=== PATIENT | female | born 1950 | race Caucasian/White ===

== ENCOUNTER 2017-06-08 14:41 | Emergency (ER) | payer OTHER, MEDICARE, SELFPAY | END 2017-06-08 18:05 | disposition home or self-care (01) | PROVIDERS: Emergency Provider Internal Medicine; Family Provider Family Medicine; PCP Family Medicine; Visit Provider Internal Medicine | DX: S16.1XXA Strain of muscle, fascia and tendon at neck level, initial encounter (principal); S56.912A Strain of unspecified muscles, fascia and tendons at forearm level, left arm, initial encounter; S46.811A Strain of other muscles, fascia and tendons at shoulder and upper arm level, right arm, initial encounter; S13.4XXA Sprain of ligaments of cervical spine, initial encounter; V89.2XXA Person injured in unspecified motor-vehicle accident, traffic, initial encounter | CPT/HCPCS: 72125; 73030; 99284 ==

== ENCOUNTER → 2017-07-05 10:50 | Outpatient (CLI) | payer MEDICARE, OTHER, SELFPAY ==
--- NOTE | 2017-07-05 | DI.MRI.S_ITS ---
PROCEDURE: MR LUMBAR SPINE WO CON INDICATIONS: LOW BACK PAIN TECHNIQUE: Noncontrast sagittal T1 spin echo and T2 fast echo, sagittal STIR, axial T1 and T2 fast spin echo through the lumbar spine. In cases with scoliosis, additional coronal T2 fast spin echo may be performed. COMPARISON: None. FINDINGS: Image quality: Degraded by patient motion artifact. Alignment and Curvature: There is grade 1 L5-S1 anterolisthesis secondary to bilateral pars interarticularis defects. There is trace L2-L3, L3-L4 and L4-L5 retrolisthesis. There is straightening of normal lumbar spine curvature. Bone Marrow: Reactive endplate change is noted adjacent to the L2-L3, L3-L4, L4-L5 and L5-S1 discs. No acute vertebral body compression fractures. Spinal Cord: Conus medullaris terminates at the L1 level. Visualized cord demonstrates normal signal and size. Paraspinous Soft Tissues: No paravertebral masses. L1-L2: Normal appearance. L2-L3: Loss of disc signal. Minimal, diffuse disc bulge. No central stenosis. No neural foraminal narrowing. No neural impingement. L3-L4: Loss of disc signal. Minimal, diffuse disc bulge. No central stenosis. No neural foraminal narrowing. No neural impingement. L4-L5: Loss of disc signal. Mild, diffuse disc bulge. Mild right and moderate left facet hypertrophy. Mild narrowing of the central canal secondary to disc disease and facet hypertrophy. Moderate bilateral neural foraminal narrowing secondary to disc and facet disease. No neural impingement. L5-S1: Loss of disc signal. Mild, diffuse disc bulge. Mild right and moderate left facet hypertrophy. No central stenosis. Severe bilateral neural foraminal narrowing secondary to disc disease and isthmic spondylolisthesis with marked flattening deformity of the exiting L5 nerve roots bilaterally. IMPRESSION: 1. Grade 1 L5-S1 isthmic spondylolisthesis. 2. Multilevel degenerative disc disease. 3. Multilevel facet arthropathy. 4. Mild L4-L5 central canal narrowing. 5. Severe bilateral L5-S1 neural foraminal narrowing. Moderate bilateral L4-L5 neural foraminal narrowing. 5. Marked flattened deformity of the exiting L5 nerve roots bilaterally secondary to neural foraminal narrowing. Please correlate with clinical data. Dictated by: Radha Olivarez MD, PhD on 07/05/2017 at 14:47 Approved by: Radha Olivarez MD, PhD on 07/05/2017 at 14:55
== END ==
PROVIDERS: Family Provider Family Medicine; PCP Family Medicine; Visit Provider Family Medicine
DX: M43.17 Spondylolisthesis, lumbosacral region (principal); M51.36 Other intervertebral disc degeneration, lumbar region; M47.816 Spondylosis without myelopathy or radiculopathy, lumbar region; M48.061 Spinal stenosis, lumbar region without neurogenic claudication; M99.73 Connective tissue and disc stenosis of intervertebral foramina of lumbar region
CPT/HCPCS: 72148

== ENCOUNTER → 2017-07-05 11:02 | Outpatient (CLI) | payer MEDICARE, OTHER, SELFPAY ==
--- NOTE | 2017-07-05 | DI.US.S_ITS ---
PROCEDURE: US THYROID INDICATIONS: NONTOXIC NODULE TECHNIQUE: Real-time scanning was performed of the thyroid gland, with image documentation. COMPARISON: None. FINDINGS: Right: Thyroid lobe measures 4.2 x 1.7 x 1.3 cm, and is homogeneous in echotexture. Left: Thyroid lobe measures 4.3 x 1.7 x 1.7 cm, and is homogenous in echotexture. Isthmus: 4.0 mm thick. Nodule number: 1 Location: Left mid Size: 1.5 x 1.2 x 1.3 cm. Composition: Solid Echogenicity: Isoechoic Shape: wider than tall. Margins: Ill-defined Echogenic foci: None Total points: 3 ACR TI-RADS category: Mildly suspicious. IMPRESSION: Mildly suspicious midpole left thyroid nodule. Given the small size, no fine-needle aspiration is recommended. Recommend followup ultrasound as below. ACR TI-RADS definitions and recommendations: TI-RADS 1 (benign): 0 points. FNA not needed. TI-RADS 2 (not suspicious): 2 points. FNA not needed. TI-RADS 3 (mildly suspicious): 3 points. * FNA if 2.5 cm or larger, follow up if 1.5 cm or larger (at 1, 3, and 5 years). TI-RADS 4 (moderately suspicious): 4-6 points. * FNA if 1.5 cm or larger, follow up if 1 cm or larger (at 1, 2, 3, and 5 years). TI-RADS 5 (highly suspicious): 7 points or more. * FNA if 1 cm or larger, follow up if 0.5 cm or larger (every year for 5 years). Dictated by: Fortunato ROBLES Interpreted: Paige Huff MD on 07/05/2017 at 13:00 Approved by: Paige Huff M.D. on 07/05/2017 at 15:10
== END ==
PROVIDERS: Family Provider Family Medicine; PCP Family Medicine; Visit Provider Family Medicine
DX: E04.1 Nontoxic single thyroid nodule (principal)
CPT/HCPCS: 72148; 76536

== ENCOUNTER → 2017-07-12 16:30 | Outpatient (CLI) | payer OTHER, MEDICARE, SELFPAY ==
--- NOTE | 2017-07-12 16:35 | DI.RAD.S_ITS ---
PROCEDURE: XR ELBOW LT MIN 3V INDICATIONS: left elbow pain after trauma TECHNIQUE: 3 views of the elbow were acquired. COMPARISON: None. FINDINGS: Bones: There is mild cortical irregularity in the area of the lateral epicondyle. The relationship between the proximal radius and ulna is abnormal on the AP view. No suspicious bony lesions. Soft tissues: No elbow joint effusion. No suspicious soft tissue calcifications. IMPRESSION: 1. There is cortical irregularity in the lateral epicondyle. Cannot rule out a subtle fracture. If clinical suspicion is high, CT or MRI is suggested. 2. The relationship between the proximal radius and ulna is abnormal on the AP projection. This finding could be due to rotation. Repeat examination when clinically feasible would be helpful. Dictated by: Reg Lagos M.D. on 07/12/2017 at 17:30 Approved by: Reg Lagos M.D. on 07/12/2017 at 17:38
== END ==
PROVIDERS: Family Provider Family Medicine; PCP Family Medicine; Visit Provider Family Medicine
DX: M25.522 Pain in left elbow (principal)
CPT/HCPCS: 73080

== ENCOUNTER → 2017-07-23 14:14 | Outpatient (CLI) | payer OTHER, SELFPAY ==
--- NOTE | 2017-07-23 14:17 | DI.CT.S_ITS ---
PROCEDURE: CT UE LT WO CON INDICATIONS: 67 year-old female with possible distal humeral fracture on recent elbow radiographs. TECHNIQUE: Noncontrast 1-1.5 mm axial sections were acquired through the elbow joint, with coronal and sagittal reformats. COMPARISON: [facility], CR, XR ELBOW LT MIN 3V, 07/12/2017, 16:15. FINDINGS: Image quality: Excellent. Bones: No acute fractures or dislocations. No suspicious lytic or blastic bony lesions. Soft tissues: No elbow joint effusion. The surrounding musculature demonstrates normal overall bulk. No soft tissue mass lesions identified. IMPRESSION: No acute bony injuries of the left elbow. Dictated by: Ulices Olivas M.D. on 07/23/2017 at 14:55 Approved by: Ulices Olivas M.D. on 07/23/2017 at 15:01
== END ==
PROVIDERS: Family Provider Family Medicine; PCP Family Medicine; Visit Provider Family Medicine
DX: M25.522 Pain in left elbow (principal); R93.7 Abnormal findings on diagnostic imaging of other parts of musculoskeletal system
CPT/HCPCS: 73200

== ENCOUNTER → 2017-11-29 16:09 | Outpatient (CLI) | payer OTHER, MEDICARE, SELFPAY ==
--- NOTE | 2017-11-29 16:58 | DI.RAD.S_ITS ---
PROCEDURE: XR LUMBAR SPINE MIN 4V INDICATIONS: spondylolisthesis l5-s1 level TECHNIQUE: 5 views of the lumbar spine were acquired. COMPARISON: [facility], , L-SPINE 2-3 VIEWS, 11/09/2008, 11:16. FINDINGS: Bones: No fracture or focal osseous destruction. Prominent anterior endplate spurring. Grade 1 retrolisthesis of L2 on L3, L3 on L4 and L4 on L5. Grade 1 anterolisthesis of L5 on S1. This measures 11 mm, previously on 11/17/08 this measured 6 mm. There is diffuse facet arthropathy, most pronounced at L5-S1. Moderate narrowing of the L5-S1 disc space. Mild narrowing of the remaining lumbar disc spaces. Soft tissues: Overlying bowel gas pattern is normal. No suspicious soft tissue calcifications. Oblique images: No pars defects visualized although limited evaluation given advanced stage of arthritic change. IMPRESSION: Interval progression and L5-S1 disc degeneration and facet arthropathy, and anterolisthesis of L5 on S1. Dictated by: Varun Sanchez M.D. on 11/29/2017 at 17:08 Approved by: Varun Sanchez M.D. on 11/29/2017 at 17:11
== END ==
PROVIDERS: Family Provider Family Medicine; Visit Provider Physical Medicine & Rehabilitation
DX: M43.17 Spondylolisthesis, lumbosacral region (principal); M51.37 Other intervertebral disc degeneration, lumbosacral region; M47.817 Spondylosis without myelopathy or radiculopathy, lumbosacral region
CPT/HCPCS: 72110

== ENCOUNTER 2018-01-02 07:13 | Outpatient (CLI) | payer OTHER, MEDICARE, SELFPAY ==
--- NOTE | 2018-01-02 07:18 | DI.RAD.S_ITS ---
PROCEDURE: PAIN L INTERLAMINAR/CAUDAL INJ INDICATIONS: INTERVERTEBRAL DISC DISPLACEMENT FINDINGS: Fluoroscopic spot filming was performed to verify placement of spinal needles at the L5-S1 level(s), as labeled on the films. Appropriate location(s) of the needle tip(s) was confirmed by injection of iodinated contrast. Dictated by: Varun Sanchez M.D. on 01/02/2018 at 14:55 Approved by: Varun Sanchez M.D. on 01/02/2018 at 14:56
[2018-01-02 08:02] VITALS: BP 112/73; PULSE 65; RESP 15; TEMP 36.1; O2SAT 98
[2018-01-02 08:35] VITALS: BP 123/78; PULSE 65; RESP 18; O2SAT 100
[2018-01-02] MEDS: MIDAZOLAM 5 MG/5 ML VIAL IV (08:39)
[2018-01-02 08:40] VITALS: BP 114/69; PULSE 65; RESP 16; O2SAT 97
[2018-01-02] MEDS: IOPAMIDOL 15 ML VIAL 3 ML INJ (08:44)
[2018-01-02] MEDS: BUPIVACAINE 0.25% (PF) VIAL 2 ML INJ (08:44)
[2018-01-02 08:45] VITALS: BP 116/70; PULSE 64; RESP 18; O2SAT 99
[2018-01-02] MEDS: methylPREDNISolone acetate 80 MG/ML VIAL INJ (08:45)
[2018-01-02] MEDS: DEXAMETHASONE 10 MG/ML VIAL 20 MG INJ (08:45)
--- NOTE | 2018-01-02 08:51 | P.PCN_ITS ---
Procedures Date/Time Date of procedure: 01/02/18 Time of procedure: 08:50 General Procedure description: PROVIDER: Rajan Ulloa DO Operative Note PREOP DIAGNOSIS 1. HNP WITH RADICULAR FEATURES, 2. MULTILEVEL CENTRAL STENOSIS, POST OP DIAGNOSIS 1. HNP WITH RADICULAR FEATURES, 2. MULTILEVEL CENTRAL STENOSIS, PROCEDURES 1. FLUORSCOPICALLY GUIDED CONTRAST CONTROLLED INTERLAMINAR EPIDURAL STEROID INJECTION - L5/S1 PHYSICIAN: Rajan Ulloa DO INDICATIONS Kaitlin is referred by Dr. Doan for treatment of Bilateral Foraminal Stenosis L>R LE symptoms. FINDINGS Multilevel Central Spinal Stenosis with Nerve Root Compression DESCRIPTION OF PROCEDURE Fluoroscopically guided, contrast-controlled L5/S1 translaminar epidural steroid injection. Following denial of allergy and review of potential side effects and complications, including, but not necessarily limited to, infection, allergic reaction, local tissue breakdown, temporary as well as permanent nerve injury, paralysis, stroke and possible , the patient indicated that the patient understood and agreed to proceed. An informed consent document was signed by the patient, witnessed by a nurse, and placed in the patient's chart. Additionally, other treatment options including modalities, medications, and physical therapy were reviewed with the patient. After review of previous anaesthesic history and IV conscious sedation the patient was deemed safe to proceed with todays procedure with IV conscious sedation as ASA class II designation. Safety time-out was performed to confirm patient ID, procedure to be performed and site of procedure. IV sedation was accomplished with a combination of 2mg of Versed administered by the RN after DO order, titrated to patient comfort during the course of the procedure while the patient remained responsive to all verbal commands. In the prone position, following sterile prep and drape of the lumbar region, the L5/S1 translaminar space was identified fluoroscopically. The skin was anesthetized via a 25-gauge, 1.5-inch needle with 1% lidocaine solution. At this point, a 22-gauge short bevel spinal needle was atraumatically introduced and advanced under fluoroscopic guidance into the region of the L5/S1 translaminar space. Depth was confirmed on lateral view. Radiological data, including multiple fluoroscopic views of the lumbar spine, reveal a spinal needle at the L5/S1 translaminar space. Lateral views then show placement of the needle in the epidural space. Subsequent views show contrast material flowing superiorly and inferiorly in the epidural space. No vascular or intrathecal uptake is observed. At this point, using loss of resistance technique with saline and air, the epidural space was entered. This was confirmed following negative aspiration with injection of approximately 1.5 cc of Isovue 200, showing excellent epidural flow without vascular or intrathecal uptake. At this point, 1 cc of 1 % lidocaine solution combined with 3 cc or 20 mg of dexamethasone and 80mg Depo medrol was injected without incident. The patent tolerated the procedure without signs of symptoms of complications prior to transfer to the recovery area for further monitoring. The patient was then transferred to the recovery area where they were observed for an appropriate period of time after the injection. The patient reported a VAS score of 6 prior to the procedure and a post-procedure VAS of 0. Total Fluoroscopy Time: 11.8 seconds Total Conscious Sedation Time: 24min POST OP INSTRUCTIONS The patient was provided a Pain Log to continue to record their response to the target-specific procedure prior to follow-up visit with their referring physician. Additionally, specific post-injection care instructions and a contact number to our office were provided if concerns arise regarding possible complications associated with the procedure are suspected. Rajan Ulloa DO Complications: none
[2018-01-02 08:55] VITALS: BP 108/65; PULSE 68; RESP 16; O2SAT 98
[2018-01-02 09:03] VITALS: BP 116/63; PULSE 62; RESP 16; O2SAT 98
== END 2018-01-02 09:37 | disposition home or self-care (01) ==
LOC: RAD 07:17
PROVIDERS: Family Provider Family Medicine; PCP Family Medicine; Visit Provider Physical Medicine & Rehabilitation
DX: M51.17 Intervertebral disc disorders with radiculopathy, lumbosacral region (principal); M48.07 Spinal stenosis, lumbosacral region; M43.17 Spondylolisthesis, lumbosacral region; M54.5 Low back pain
CPT/HCPCS: 62323; 99152; J1040; J1100; J2250

== ENCOUNTER → 2018-02-26 15:56 | Outpatient (CLI) | payer OTHER, SELFPAY ==
--- NOTE | 2018-02-26 16:02 | DI.RAD.S_ITS ---
PROCEDURE: XR KNEE LT 3V INDICATIONS: Left knee pain and muscle cramping TECHNIQUE: 3 views of the knee were acquired. COMPARISON: None. FINDINGS: Bones: No fractures or dislocations. There is mild joint space narrowing in the medial compartment and the lateral patellofemoral compartment. Mild tricompartmental osteophytosis noted. No suspicious bony lesions. Soft tissues: No joint effusion. No suspicious soft tissue calcifications. IMPRESSION: 1. Mild osteoarthritic changes as described. Dictated by: Meng Benitez M.D. on 02/26/2018 at 17:20 Approved by: Meng Benitez M.D. on 02/26/2018 at 17:20
== END ==
PROVIDERS: PCP Family Medicine; Visit Provider Physical Medicine & Rehabilitation
DX: M25.562 Pain in left knee (principal); M17.12 Unilateral primary osteoarthritis, left knee; R25.2 Cramp and spasm
CPT/HCPCS: 73562

== ENCOUNTER 2018-08-15 13:47 | Outpatient (CLI) | payer OTHER, MEDICARE, SELFPAY ==
[2018-08-15] VITALS (8 sets, daily range): BP systolic 97–137; BP diastolic 54–99; PULSE 54–63; RESP 16–18; TEMP 36.5; O2SAT 96–100
--- NOTE | 2018-08-15 13:49 | DI.RAD.S_ITS ---
PROCEDURE: PAIN L/SI FACET INJ/BLK 1STL INDICATIONS: SPONDYLOSIS FINDINGS: Fluoroscopic spot filming was performed to verify placement of spinal needles at the L4-L5 and L5-S1 level(s), as labeled on the films. Appropriate location(s) of the needle tip(s) was confirmed by injection of iodinated contrast. IMPRESSION: Fluoroscopy for pain management. Dictated by: Reg Lagos M.D. on 08/15/2018 at 15:35 Approved by: Reg Lagos M.D. on 08/15/2018 at 15:35
[2018-08-15] MEDS: fentaNYL 100 MCG/2 ML INJ 50 MCG IV (14:45)
[2018-08-15] MEDS: MIDAZOLAM 5 MG/5 ML VIAL IV (14:45)
[2018-08-15] MEDS: IOPAMIDOL 15 ML VIAL 3 ML INJ (14:49)
[2018-08-15] MEDS: BUPIVACAINE 0.5% (PF) VIAL 2 ML INJ (14:49)
[2018-08-15] MEDS: LIDOCAINE 1% 20 ML INJ 10 ML INJ (14:50)
[2018-08-15] MEDS: BETAMETHASONE 30 MG/5 ML MDV 12 MG INJ (14:50)
--- NOTE | 2018-08-15 14:54 | PC.NURSE ---
Pt tolerated procedure well. Able to get off table with standby assist. Transferred pt via wheelchair awake and alert to pre procedure room for continued monitoring with Anisha CEDILLO.
--- NOTE | 2018-08-15 15:04 | P.PCN_ITS ---
Procedures Date/Time Date of procedure: 08/15/18 Time of procedure: 15:02 General Procedure description: PREOP DIAGNOSIS 1. FACET ARTHROPATHY, 2. AXIAL LBP, 3. MULTILEVEL DDD, POST OP DIAGNOSIS 1. FACET ARTHROPATHY, 2. AXIAL LBP, 3. MULTILEVEL DDD, PROCEDURES 1. FLUORSCOPICALLY GUIDED CONTRAST CONTROLLED FACET JOINT INJECTIONS RIGHT L4/5, L5/S1 SURGEON: Rajan Ulloa, DO INDICATIONS Kaitlin is referred by for treatment of Axial LBP FINDINGS Multilevel Facet Arthropathy with Clinically significant axial LBP DESCRIPTION OF PROCEDURE Fluoroscopically guided, contrast-controlled right L4/5, L5/S1 facet joint injections. Following review of allergy and review of potential side effects and complications, including, but not necessarily limited to, infection, allergic reaction, local tissue breakdown, stroke, temporary or permanent nerve injury, paralysis, and possible , the patient indicated that the patient understood and agreed to proceed. An informed consent document was signed by the patient, witnessed by a nurse, and placed in the patient's chart. Additionally, other treatment options including medications, modalities, and physical therapy were reviewed with the patient. After review of previous anaesthesic history and IV conscious sedation the patient was deemed safe to proceed with todays procedure with IV conscious sedation as ASA class II designation. Safety time-out was performed to confirm patient ID, procedure to be performed and site of procedure. IV sedation was accomplished with a combination of 2mg of Versed and 50mcg of Fentanyl was administered by the RN after DO order, titrated to patient comfort during the course of the procedure while the patient remained responsive to all verbal commands. In the prone position, following sterile prep and drape of the lumbar region, the posterior aspect of the right L4/5, L5/S1 facet joints were identified fluoroscopically. The skin was anesthetized via a 25-gauge 1.5-inch needle with 1% lidocaine solution into the corresponding facet joints. At this point, a 22- gauge 3.5-inch spinal needle was atraumatically introduced and advanced under fluoroscopic guidance into the corresponding facet joints. Following negative aspiration, injections of approximately 0.2-cc of Isovue 200 confirmed interarticular placement without vascular uptake. Radiological data, including multiple fluoroscopic views of the lumbosacral spine, reveal a spinal needle at the right L4/5, L5/S1 facet joints. Subsequent views show flow of contrast material both superiorly and inferiorly within the joint space without vascular or intrathecal uptake. At this point, a total of 0.5 cc including a mixture of 0.25cc Marcaine and 0.25cc betamethasone was injected without complication into each of the corresponding facet joints. The procedure tolerated the procedure well without signs or symptoms of complications prior to transfer to the recovery area continued monitoring without incident. The patient was then transferred to the recovery area where they were observed for an appropriate period of time after the injection. The patient reported a VAS score of 7 prior to the procedure and a post-procedure VAS of 0. Total Fluoroscopy Time: 12.7 seconds Total Conscious Sedation Time: 24min POST OP INSTRUCTIONS The patient was provided a Pain Log to continue to record their response to the target-specific procedure prior to follow-up visit with their referring physician. Additionally, specific post-injection care instructions and a contact number to our office were provided if concerns arise regarding possible c omplications associated with the procedure are suspected. Rajan Ulloa DO Complications: none
== END 2018-08-15 15:31 | disposition home or self-care (01) ==
LOC: RAD 13:49
PROVIDERS: PCP Family Medicine; Visit Provider Physical Medicine & Rehabilitation
DX: M47.816 Spondylosis without myelopathy or radiculopathy, lumbar region (principal); M47.817 Spondylosis without myelopathy or radiculopathy, lumbosacral region; M54.5 Low back pain; M51.36 Other intervertebral disc degeneration, lumbar region; M51.37 Other intervertebral disc degeneration, lumbosacral region
CPT/HCPCS: 64493; 64494; 99152; J0702; J2250; J3010

== ENCOUNTER → 2019-12-04 11:02 | Outpatient (CLI) | payer MEDICARE, OTHER, SELFPAY ==
--- NOTE | 2019-12-04 11:04 | DI.MRI.S_ITS ---
PROCEDURE: MR LUMBAR SPINE WO CON INDICATIONS: Lumbar facet arthropathy L5-S1 spondylolisthesis TECHNIQUE: Noncontrast sagittal T1 spin echo and T2 fast echo, sagittal STIR, axial T1 and T2 fast spin echo through the lumbar spine. In cases with scoliosis, additional coronal T2 fast spin echo may be performed. COMPARISON: [facility], CR, XR LUMBAR SPINE MIN 4V, 11/29/2017, 16:18. [facility], RG, XR L SP FLEXION AND EXTENSION, 02/05/2019, 12:06. [facility], MR, MR LUMBAR SPINE WO CON, 07/05/2017, 11:43. FINDINGS: Image quality: Excellent. Alignment and Curvature: 5 lumbar type vertebral bodies are present by plain film. Mild grade 1 retrolisthesis of L2 on L3, L3 on L4, and L4 on L5. Mild grade 1 anterolisthesis of L5 on S1. Bone Marrow: Marrow is of normal overall signal. No acute vertebral body compression fractures. Bilateral L5-S1 pars interarticularis defects. Moderate reactive signal within the endplates adjacent to the L4-L5 intervertebral disc. Mild reactive signal within the endplates adjacent to the L1-L2, L2-L3, L3-L4, and L5-S1 intervertebral discs. Spinal Cord: Conus medullaris terminates at the T12-L1 disc space level. Visualized cord demonstrates normal signal and size. Paraspinous Soft Tissues: No paravertebral masses. L1-L2: Mild facet and ligamentum flavum hypertrophy. No significant canal, or foraminal stenosis. No change. L2-L3: Mild disc desiccation and diffuse disc bulge. Mild facet and ligamentum flavum hypertrophy. Mild canal stenosis. Mild bilateral foraminal stenosis. No change. L3-L4: Mild disc height loss and desiccation. Mild diffuse disc bulge. Mild facet and ligamentum flavum hypertrophy. Mild canal stenosis. Mild bilateral foraminal stenosis. No change. L4-L5: Moderate disc height loss and desiccation. Mild diffuse disc bulge. Mild facet and ligamentum flavum hypertrophy. Mild canal stenosis. Mild bilateral foraminal stenosis. No change. L5-S1: Moderate disc height loss and desiccation. Mild diffuse disc bulge. Mild bilateral facet hypertrophy. No canal stenosis. Severe bilateral foraminal stenosis with left greater than right L5 nerve root compression. No change. IMPRESSION: 1. Grade 1 isthmic spondylolisthesis at L5-S1. 2. Multilevel degenerative disc and facet disease, as well as ligamentum flavum hypertrophy and epidural lipomatosis. 3. Mild multilevel canal stenosis. 4. Multilevel foraminal stenoses, worst at L5-S1, where there is associated intraforaminal nerve root compression as described above. Recommend correlation with clinical symptoms to ascertain relevance of these findings. Dictated by: Lou Osullivan M.D. on 12/04/2019 at 12:24 Approved by: Lou Osullivan M.D. on 12/04/2019 at 12:29
== END ==
PROVIDERS: PCP Family Medicine; Referring Provider Family Medicine; Visit Provider Physical Medicine & Rehabilitation
DX: M47.817 Spondylosis without myelopathy or radiculopathy, lumbosacral region (principal); M51.36 Other intervertebral disc degeneration, lumbar region; M48.061 Spinal stenosis, lumbar region without neurogenic claudication; M53.3 Sacrococcygeal disorders, not elsewhere classified
CPT/HCPCS: 72148

== ENCOUNTER → 2019-12-22 15:23 | Outpatient (CLI) | payer MEDICARE, OTHER, SELFPAY ==
[2019-12-24 08:24] LABS: COVID19 Sendout Not Detected (Not Detect)
== END ==
PROVIDERS: PCP Family Medicine; Visit Provider Physician Assistant
DX: Z11.59 Encounter for screening for other viral diseases (principal)
CPT/HCPCS: 87635

== ENCOUNTER 2019-12-25 14:58 | Outpatient (CLI) | payer MEDICARE, OTHER, SELFPAY ==
[2019-12-25] VITALS (10 sets, daily range): BP systolic 97–127; BP diastolic 51–69; PULSE 60–71; RESP 14–20; TEMP 36.1; O2SAT 95–100
--- NOTE | 2019-12-25 14:59 | DI.RAD.S_ITS ---
PROCEDURE: PAIN L/S FACET INJ/BLK 1ST KENYA COMPARISON: [facility], MR, MR LUMBAR SPINE WO CON, 12/04/2019, 11:19. INDICATIONS: SPONDYLOSIS FINDINGS: Fluoroscopic spot filming was performed to verify placement of a spinal needle at the L4, L5, and S1 levels on both sides, as labeled on the films. Appropriate location of the needle tips was confirmed by injection of iodinated contrast. IMPRESSION: Intraprocedural examination within normal limits. Dictated by: Yrn Hobbs M.D. on 12/25/2019 at 16:34 Approved by: Yrn Hobbs M.D. on 12/25/2019 at 16:34
[2019-12-25] MEDS: fentaNYL 100 MCG/2 ML INJ 50 MCG IV (15:42)
[2019-12-25] MEDS: IOPAMIDOL 15 ML VIAL 3 ML INJ (15:49)
[2019-12-25] MEDS: LIDOCAINE 1% 20 ML 10 ML INJ (15:49)
[2019-12-25] MEDS: BUPIVACAINE 0.5% (PF) VIAL 5 ML INJ (15:49)
[2019-12-25] MEDS: MIDAZOLAM 5 MG/5 ML VIAL IV (15:50)
--- NOTE | 2019-12-25 16:06 | P.PCN_ITS ---
Date/Time/Diagnoses Date of procedure: 12/25/19 Time of procedure: 16:07 Pre-procedure diagnosis: 1. FACET ARTHROPATHY Post-procedure diagnosis: same Procedure Notes Procedure: 1. BILATERAL- L4, L5 and S1 DIAGNOSTIC MB BLOCKS with LA Anesthetic Indications: Kaitlin is referred by Dr. Doan for treatment of Bilateral Axial LBP. Physician: Rajan Ulloa Total Fluoroscopy time (seconds): 11 Total sedation minutes: 16 Complications: none Procedure in detail & Post-procedure care: DESCRIPTION OF PROCEDURE Fluoroscopically guided, contrast-controlled bilateral L4, L5 and S1 medial branch blocks with 0.5cc of 0.5% Marcaine. Following review of allergy and review of potential side effects and complications, including, but not necessarily limited to, infection, allergic reaction, local tissue breakdown, nerve injury, paralysis, stroke and possible , the patient indicated that the patient understood and agreed to proceed. An informed consent document was signed by the patient, witnessed by a nurse, and placed in the patient's chart. After review of previous anaesthesic history and IV conscious sedation the patient was deemed safe to proceed with today's procedure with IV conscious sedation as ASA class II designation. Safety time-out was performed to confirm patient ID, procedure to be performed and site of procedure. IV sedation was accomplished with a combination of 3mg of Versed and 50mcg of Fentanyl was administered by the RN after DO order, titrated to patient comfort during the course of the procedure while the patient remained responsive to all verbal commands In the prone position, following sterile prep and drape of the lumbar region, the right L4, L5 and S1 anatomical location of the medial branch of the dorsal ramus was identified fluoroscopically. Subsequently an anesthetic skin wheal using 1% lidocaine solution was initiated at each of the anatomical spots. Subsequently then a 22-gauge 3.5-inch spinal needle was atraumatically introduced and advanced under fluoroscopic guidance at each of the corresponding sites at the right L4, L5 and S1 MB. After negative aspiration, 0.2cc of Isovue 200 was injected, confirming placement without vascular or intrathecal uptake. Subsequently then 0.5cc of 0.5% Marcaine solution was injected at each of the corresponding sites at the right L4, L5 and S1 medial branch locations. The identical procedure was replicated on the left. The patient tolerated the procedure well without signs or symptoms of complications prior to transfer to the recovery area continued monitoring without incident. Post-procedure, the patient was monitored initiating provocative activities to measure the amount of relief from block of the facetogenic pain. The patient reported a VAS of 7 prior to the procedure and a post-procedure VAS of 1. It has been a pleasure to assist in the diagnostic and therapeutic care of your patient. POST OP INSTRUCTIONS The patient was provided with a Pain Log to complete over the next several hours and subsequent days prior to the patient's follow up with the ordering physician. If the patient has asw specialist relief to the solution applied, then they may be a candidate for medial branch rhizotomy. The patient is aware, was provided, once again, with a Pain Log and will follow up with the referring physician for review and clinical correlation
== END 2019-12-25 16:50 | disposition home or self-care (01) ==
PROVIDERS: PCP Family Medicine; Referring Provider Physical Medicine & Rehabilitation; Visit Provider Physical Medicine & Rehabilitation
DX: M47.816 Spondylosis without myelopathy or radiculopathy, lumbar region (principal); M47.817 Spondylosis without myelopathy or radiculopathy, lumbosacral region; M54.5 Low back pain
CPT/HCPCS: 64493; 64494; 99152; J2250; J3010

== ENCOUNTER → 2020-01-26 08:59 | Outpatient (CLI) | payer MEDICARE, OTHER, SELFPAY ==
--- NOTE | 2020-01-26 09:02 | DI.RAD.S_ITS ---
PROCEDURE: XR LUMBAR SPINE MIN 4V INDICATIONS: UPDATE IMAGING TECHNIQUE: 5 views of the lumbar spine were acquired. COMPARISON: [facility], , XR LUMBAR SPINE MIN 4V, 11/29/2017, 16:18. FINDINGS: Bones: No fracture. Multilevel degenerative endplate sclerosis and spurring. Diffuse facet arthropathy. Grade 2 anterolisthesis of L5 on S1. Grade 1 retrolisthesis of L4 on L5. Moderate narrowing of the L4-L5 and L5-S1 disc spaces. There is diffuse lower thoracic disc degeneration and disc space narrowing. Mild bilateral hip joint degeneration. Soft tissues: Overlying bowel gas pattern is normal. No suspicious soft tissue calcifications. Oblique images: No pars defects however limited evaluation given advanced discogenic changes.. IMPRESSION: Grade 2 anterolisthesis of L5 on S1. Grade 1 retrolisthesis of L4 on L5. No interval change Diffuse lower lumbar spondylosis and facet arthropathy. No interval change since 11/29/17. Dictated by: Varun Sanchez M.D. on 01/26/2020 at 11:43 Approved by: Varun Sanchez M.D. on 01/26/2020 at 11:45
== END ==
PROVIDERS: PCP Family Medicine; Referring Provider Physical Medicine & Rehabilitation; Visit Provider Physical Medicine & Rehabilitation
DX: M47.816 Spondylosis without myelopathy or radiculopathy, lumbar region (principal); M43.17 Spondylolisthesis, lumbosacral region; M51.34 Other intervertebral disc degeneration, thoracic region; M16.0 Bilateral primary osteoarthritis of hip; F43.10 Post-traumatic stress disorder, unspecified
CPT/HCPCS: 72110; 99214

== ENCOUNTER → 2020-05-03 14:20 | Outpatient (CLI) | payer MEDICARE, OTHER, SELFPAY ==
[2020-05-03 15:02] LABS: COVID19 -Nasal RAPID Negative (Negative)
== END ==
PROVIDERS: PCP Family Medicine; Visit Provider Physical Medicine & Rehabilitation
DX: Z20.822 Contact with and (suspected) exposure to COVID-19 (principal)
CPT/HCPCS: 87635; C9803

== ENCOUNTER 2020-05-04 07:40 | Outpatient (CLI) | payer MEDICARE, OTHER, SELFPAY ==
[2020-05-04] VITALS (9 sets, daily range): BP systolic 109–137; BP diastolic 57–72; PULSE 54–65; RESP 12–22; TEMP 36.3; O2SAT 97–100
--- NOTE | 2020-05-04 07:45 | DI.RAD.S_ITS ---
PROCEDURE: PAIN L/S MED/LAT N RFA BILAT INDICATIONS: SPONDYLOSIS COMPARISON: [facility], XA, PAIN L/S FACET INJ/BLK 1ST KENYA, 12/25/2019, 15:48. [facility], CR, XR LUMBAR SPINE MIN 4V, 01/26/2020, 9:10. FINDINGS: Fluoroscopic spot filming was performed to verify placement of spinal needles at the L4, L5, and S1 levels on both sides, as labeled on the films. IMPRESSION: Intraprocedural examination within normal limits. Dictated by: Yrn Hobbs M.D. on 05/04/2020 at 10:24 Approved by: Yrn Hobbs M.D. on 05/04/2020 at 10:25
[2020-05-04] MEDS: MIDAZOLAM 5 MG/5 ML VIAL IV (08:25)
[2020-05-04] MEDS: fentaNYL 100 MCG/2 ML INJ 50 MCG IV (08:25)
[2020-05-04] MEDS: BUPIVACAINE 0.5% (PF) VIAL 5 ML INJ (08:27)
[2020-05-04] MEDS: LIDOCAINE 1% 20 ML INJ (08:27)
--- NOTE | 2020-05-04 09:00 | P.PCN_ITS ---
Date/Time/Diagnoses Date of procedure: 05/04/20 Time of procedure: 09:00 Pre-procedure diagnosis: 1. RECALCITRANT FACET ARTHROPATHY Post-procedure diagnosis: same Procedure Notes Procedure: 1. BILATERAL L4 AND L5 MEDIAL BRANCH RADIOFREQUENCY NEUROTOMY AND S1 DORSAL RAMUS BRANCH RADIOFREQUENCY NEUROTOMY Indications: Kaitlin is referred by Dr. Doan for treatment of facet arthropathy. Physician: Rajan Ulloa Total Fluoroscopy time (seconds): 23 Total sedation minutes: 29 Complications: none Procedure in detail & Post-procedure care: DESCRIPTION OF PROCEDURE Bilateral L4 and L5 medial branch radiofrequency neurotomy and bilateral S1 dorsal ramus radiofrequency neurotomy under fluoroscopy with conscious sedation. The patient is well known to this clinic having undergone previous facet injections with good but temporary relief. The patient has experienced appropriate, concordant relief with previous facet and median branch blocks but the patient's pain has been recalcitrant to further conservative measures. Therefore, based upon the patient's relief and persistent symptoms, the patient is considered an appropriate candidate for facet rhizotomy. All of the patient's questions regarding the risks versus benefits of the procedure, including, but not limited to, bleeding, infection, temporary as well as lasting nerve injury, paralysis, stroke, and , as well treatment alternatives were answered to satisfaction. After obtaining informed consent, denial of pertinent drug allergies, as well as being made aware of the potential risks of bleeding, infection, spinal cord trauma, paralysis, temporary and permanent nerve damage, seizure, stroke, and possible , the patient was brought to the fluoroscopy suite and positioned prone on the fluoroscopy table. The lumbar region was prepped with Betadine and covered with a fenestrated drape in the usual sterile fashion. Appropriate monitors applied including pulse oximeter, pulse, and blood pressure for regular monitoring throughout the procedure. After review of previous anaesthesic history and IV conscious sedation the patient was deemed safe to proceed with today's procedure with IV conscious sedation as ASA class II designation. Safety time-out was performed to confirm patient ID, procedure to be performed and site of procedure. IV sedation was accomplished with a combination of 2mg of Versed and 50mcg of Fentanyl administered by the RN after DO order, titrated to patient comfort during the course of the procedure while the patient remained responsive to all verbal commands. After local infiltration using 1% lidocaine, under fluoroscopic guidance, a 10- cm RF insulated needle with a 10-mm active tip was positioned parallel to the junction of the right sacral ala and the superior articulating process where the S1 dorsal ramus resides. Needle placement was confirmed with motor stimulation of .5v on the right which produced local stimulation without radicular component. The stimulation was then increased to 2v with, once again, only local multifidus stimulation without radicular component. The needle was then removed and the identical procedure was performed along the length of the right L5 medial branch with motor stimulation at .7v on the right. The identical procedure was once again performed along the length of the right L4 medial branch with motor stimulation of .5v on the right. The medial branches were then anesthetised with 0.5% Marcaine. This was then followed by two discreet lesions performed at 80 degrees Celsius for 90 seconds each. The identical procedure was repeated on the left. The patient tolerated the procedure well without signs or symptoms of complications prior to transfer to the recovery area continued monitoring without incident. The patient was then transferred to the recovery area where they were observed for an appropriate period of time after the injection. The patient reported a VAS score of 9 prior to the procedure and a post-procedure VAS of 0. POST OP INSTRUCTIONS The patient was provided a Pain Log to continue to record the patient's response to the target-specific procedure prior to the patient's follow-up visit with the referring physician. Additionally, specific post-injection care instructions and a contact number to our office were provided if concerns arise regarding possible complications associated with the procedure are suspected.
== END 2020-05-04 09:09 | disposition home or self-care (01) ==
LOC: RAD 07:45
PROVIDERS: PCP Family Medicine; Referring Provider Physical Medicine & Rehabilitation; Visit Provider Physical Medicine & Rehabilitation
DX: M47.816 Spondylosis without myelopathy or radiculopathy, lumbar region (principal); M47.817 Spondylosis without myelopathy or radiculopathy, lumbosacral region
CPT/HCPCS: 64635; 64636; 99152; 99153; J2250; J3010

== ENCOUNTER → 2020-09-09 08:44 | Outpatient (CLI) | payer MEDICARE, OTHER, SELFPAY ==
[2020-09-09 10:31] LABS: COVID19 -Nasal RAPID Negative (Negative)
== END ==
PROVIDERS: PCP Family Medicine; Visit Provider Specialist
DX: Z20.822 Contact with and (suspected) exposure to COVID-19 (principal)
CPT/HCPCS: 87635; C9803

== ENCOUNTER 2020-09-10 07:32 | Day surgery (SDC) | payer MEDICARE, OTHER, SELFPAY ==
[2020-09-10 08:06] VITALS: BP 113/74; PULSE 79; RESP 16; TEMP 36.1; O2SAT 97; BMI 31.4
[2020-09-10] MEDS: LACTATED RINGERS 1,000 ML 42 ML IV (08:45)
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
--- NOTE | 2020-09-10 09:22 | PM.PREOP ---
Pre-operative Note COVID-19 COVID-19 status: Negative Result date/Date tested (Pos, Neg/Pending): 09/09/20 Interval Note History & Physical reviewed/Exam performed by Physician: Yes Changes to H&P: No ASA Class (for procedural sedation): II
[2020-09-10] MEDS: fentaNYL 250 MCG/5 ML INJ IV (09:35)
[2020-09-10] MEDS: MIDAZOLAM 5 MG/5 ML VIAL IV (09:35)
--- NOTE | 2020-09-10 09:51 | PM.OP.ENDO ---
Operative Date/Time/Diagnoses Date of procedure: 09/10/20 Time of procedure: 09:51 Pre-op diagnosis: History of polyps. Post-op diagnosis: same (Extensive pancolonic diverticulosis.) Procedure & Clinicians Study performed: Colonoscopy Same procedure as scheduled: Yes Indications: Screening in a patient with a history of polyps. Last exam was 8 years ago. Surgeon: Zia Perez Procedure Notes SCOAP/Timeout: Performed Procedure in detail: The patient was placed in the left lateral decubitus position and underwent IV sedation directed by the surgeon consisting of fentanyl and Versed. Digital exam was unremarkable except for decreased sphincter tone. The scope was inserted and advanced through the rectum into the sigmoid, descending, transverse, and ascending colon. Patient had numerous diverticuli especially in the sigmoid colon but scattered throughout.. The cecum was reached identified by the ileocecal valve and the appendiceal opening. The scope was slowly withdrawn. No Polyps were found. The scope ultimately was retroflexed in the rectum. The appearance was normal except for scarring.. The scope was removed and the patient tolerated the procedure well. Prep was adequate. Scope withdrawal time: Almost 7 minutes Sedation minutes: 26 Findings: diverticulosis Specimen(s): none sent Complications: none Post-procedure Recommendations: Colonscopy in 5 years Follow up: as needed Disposition: PACU
[2020-09-10 09:53] VITALS: BP 119/75; PULSE 73; RESP 16; TEMP 36.4; O2SAT 97
[2020-09-10 09:58] VITALS: BP 123/76; PULSE 83; RESP 16; O2SAT 98
[2020-09-10 10:02] VITALS: BP 114/78; PULSE 74; RESP 18; O2SAT 98
[2020-09-10 10:08] VITALS: BP 115/68; PULSE 77; RESP 16; TEMP 36.2; O2SAT 97
--- NOTE | 2020-09-10 10:19 | SUR.PHASEII ---
pt states she understands discharge instructions. Pt denies any complaints Pt to be discharged with her . Pt denies any nausea and pain.
== END 2020-09-10 10:20 | disposition home or self-care (01) ==
PROVIDERS: PCP Family Medicine; Referring Provider Specialist; Visit Provider Specialist
PROC: 0DJD8ZZ Inspection of Lower Intestinal Tract, Via Natural or Artificial Opening Endoscopic (ICD-10-PCS; CPT 45378; principal; 2020-09-10 08:30)
DX: Z12.11 Encounter for screening for malignant neoplasm of colon (principal); Z86.010 Personal history of colon polyps; E03.9 Hypothyroidism, unspecified; K57.30 Diverticulosis of large intestine without perforation or abscess without bleeding
CPT/HCPCS: G0105; 99152; J2250; J3010

== ENCOUNTER → 2024-05-23 14:37 | Outpatient (CLI) | payer MEDICARE, OTHER, SELFPAY ==
[2024-05-23 17:11] LABS: Cancer Antigen 125 < 5.5 U/mL (0-35)
[2024-05-27 11:09] LABS: Human Epididymis Prot 4 54.3 pmol/L (0.0-96.9)
== END ==
PROVIDERS: PCP Family Medicine; Referring Provider Specialist; Visit Provider Specialist
DX: N83.202 Unspecified ovarian cyst, left side (principal); R19.00 Intra-abdominal and pelvic swelling, mass and lump, unspecified site; R19.09 Other intra-abdominal and pelvic swelling, mass and lump
CPT/HCPCS: 36415; 86304; 86305

== ENCOUNTER 2024-06-13 08:00 | Day surgery (SDC) | payer MEDICARE, OTHER, SELFPAY ==
[2024-06-13] VITALS (7 sets, daily range): BP systolic 104–131; BP diastolic 55–69; PULSE 56–95; RESP 12–20; TEMP 36.1–36.2; O2SAT 97–99; BMI 28.6
--- NOTE | 2024-06-13 | PATH_ITS ---
[facility] Accession Number: [id number] No. of containers..01 Tissue . 01 Material submitted: . ovary - LEFT OVARY AND FALLOPIAN TUBE . 01 Diagnosis: LEFT OVARY AND FALLOPIAN TUBE, LAPAROSCOPIC LEFT SALPINGO-OOPHORECTOMY: Ovary with a benign serous cystadenoam (disrupted cyst measurement 5.3 x 3.6 x 1.9 cm). Fimbriated fallopian tube, longitudinal and cross sections, with multiple benign paratubal cysts; adhesions to adjacent adnexal fibroconnective tissue are present. [facility] 06/23/2024 1251 Local . 01 Electronically signed: . Maddy Barnard MD, Pathologist NPI- [id number] . 01 Gross description: . Received in formalin with two identifiers and left fallopian tube and ovary, is a disrupted cystic structure (5.3 x 3.6 x 1.9 cm), with attached fimbriated fallopian tube (4.8 x 0.7 cm). The external surface is inked blue. Sectioning reveals the serosa of the fallopian tube is shay and smooth with multiple smaller cystic structures up to 0.5 cm in greatest dimension filled with shay serous fluid. The exernal surface of the large cystic structure is smooth. The lumen of the fallopian tube is stellate and unremarkable. The cyst is unilocular with a thickened area up to 0.5 cm adjacent to the fallopian tube possibly consistent with distorted ovarian parenchyma. The remaining smith average 0.1 cm thick with no excrescences or thickening identified. The possible ovarian parenchyma is 1.9 x 1.4 cm. Bookkeeper Assistant sections to include one-half of the bisected fimbriae, fallopian tube cross-sections, and cyst wall are submitted in cassettes A1-A6. ([id number]) . Additional sections of fallopian tube are submitted in cassette A7. ([id number]) /SIMON 06/19/2024 0825 Local . 01 Pathologist provided ICD-10: N83.202 . 01 CPT . 435457 Specimen Comment: A courtesy copy of this report has been sent to [phone] Performed at: [address] [address], [place], [place] [id number] MD Meng Sorensen MD Phone: [phone]
[2024-06-13] MEDS: LACTATED RINGERS 1,000 ML 21 ML IV ×2 (08:44→09:55)
--- NOTE | 2024-06-13 08:54 | PM.PREOP ---
Pre-operative Note Interval Note History & Physical reviewed/Exam performed by Physician: Yes Changes to H&P: No
--- NOTE | 2024-06-13 09:37 | SUR.OPER ---
Lithotomy on padded OR bed, head on pillow, arms secured on padded arm boards at <90 degrees abduction. Legs secured in padded yellow fins stirrups.
[2024-06-13] MEDS: BUPIVACAINE 0.5% W/ EPI (PF) 30 ML VIAL INJ (09:47)
--- NOTE | 2024-06-13 10:22 | P.OP_ITS ---
Operative Date/Time/Diagnoses Date of procedure: 06/13/24 Time of procedure: 10:22 Pre-op diagnosis: Left ovarian cyst with left-sided pelvic pain Post-op diagnosis: same Procedure & Clinicians Procedure: Laparoscopic left salpingo oophorectomy, lysis of adhesions Same procedure as scheduled: Yes Indications: Left lower quadrant pain and large left benign-appearing ovarian cyst Surgeon: Nadege Sommer Click Yes if Unassisted: Yes Anesthesia Type: General Operative Notes Findings: Normal liver edge, normal bowel surface, no internal hernias. Adhesion of the omentum to the fundus of the uterus on the left side. Minimal adhesions of the descending colon above the infundibulopelvic ligament. Large simple appearing left ovarian cyst. Normal appearing uterus and right tube and ovary. Closure Type: primary Specimen(s): other (Left ovary and tube) Estimated Blood Loss (mL): 5 Blood products transfused: none Procedure in detail: Patient was brought to the operating room where she underwent general anesthesia. [facility] and prepped and draped in usual sterile fashion. Pulsatile stockings were in place and functional. Warming was with blankets. A check system was reviewed with the staff in the room prior to beginning the case. The area of the incisions were injected with half percent Marcaine with epinephrine. An incision was made in the umbilicus with a scalpel and the Verres needle placed in the abdomen. Confirmation of correct placement of the needle was performed by withdrawing on the syringe and then allowing fluid to fall freely through the needle. The abdomen was insufflated to 3 L of CO2. A 5 mm trocar was placed under direct visualization. 2 other 5 mm trochars were placed in the right and left lower quadrant under direct visualization after incising the skin. There did not appear to be any damage with placement of the trocars. Adhesion of the omentum to the uterine fundus was removed with power seal. The left fallopian tube was grasped and sequential bites taken along the infundibulopelvic ligament and left broad ligament until the utero-ovarian ligament and tube were cauterized using freeing the left tube and ovary. A #12 trocar was placed suprapubically after injecting with local and incising the skin. The intact ovary and tube were placed in an Endo-Catch bag and brought up to the incision. The fluid was drained and the ovary removed without spillage. Tube and ovary were sent to pathology. Adequate hemostasis was noted. The CO2 was allowed to escape from the abdomen. The trochars were removed. The fascial layer of the suprapubic incision was closed with 0 Vicryl suture. Skin was closed with 4-0 monocryl. The patient went to recovery room in good condition. Complications: none Post-operative Condition: stable Disposition: same day surgery Plan for aftercare: Home when awake and stable. Further treatment pending pathology report.
[2024-06-13] MEDS: ACETAMINOPHEN 325 MG TABLET 975 MG PO (11:05)
== END 2024-06-13 12:08 | disposition home or self-care (01) ==
PROVIDERS: PCP Family Medicine; Referring Provider Specialist; Visit Provider Specialist
PROC: (CPT 58661; principal; 2024-06-13 09:15)
DX: N73.6 Female pelvic peritoneal adhesions (postinfective) (principal); N83.8 Other noninflammatory disorders of ovary, fallopian tube and broad ligament; N83.292 Other ovarian cyst, left side
CPT/HCPCS: 58661; J1885; J2405; J2704; J3010